=== PATIENT | male | born 1955 | race Caucasian/White ===

== ENCOUNTER 2023-06-19 14:47 | Emergency (ER) | payer SELFPAY ==
[2023-06-19 14:50] VITALS: BP 163/84
--- NOTE | 2023-06-19 16:17 | CON.MD ---
Consultation - Medical
-
see dictated note
pt has inj of 0.2ml of trimix this morning at 11m
presented to ER with priapsim
both corporal bodies aspirated for total of 60cc old old blood and inj with 1ml each of phenyl
good detumescence
pt observed for 45 minutes with no recurrences
home with instructions and doxy
will f/u with me in 4 weeks
== END 2023-06-19 16:50 | disposition home or self-care (01) ==
LOC: EMR 14:47
PROVIDERS: EMERGENCY PHYSICIAN Specialist
DX: N48.33 Priapism, drug-induced (principal); T46.7X5A Adverse effect of peripheral vasodilators, initial encounter
CPT/HCPCS: 99284; 54220